=== PATIENT | female | born 1955 | race Caucasian/White ===

== ENCOUNTER 2016-11-13 05:42 | Day surgery (SDC) | payer OTHER ==
[2016-11-13] MEDS ORDERED: LIDOCAINE 1% 5 ML SDV ONE (05:51)
[2016-11-13] MEDS ORDERED: LIDOCAINE 1% 5 ML SDV ID PRN (06:48)
[2016-11-13] MEDS ORDERED: LR 1,000 ML IV ONE (06:48)
[2016-11-13] MEDS ORDERED: LIDO/EPI 1% **Not for Epidural 20 ML MDV ONE (06:49)
[2016-11-13] MEDS ORDERED: BUPIVACAINE/EPI 0.25% 30 ML SDV ONE (06:49)
[2016-11-13] MEDS ORDERED: fentaNYL 250 MCG/5 ML INJ ONE (07:03)
[2016-11-13] MEDS ORDERED: PROPOFOL 200 MG/20 ML VIAL ONE (07:03)
[2016-11-13] MEDS ORDERED: LIDOCAINE 2% 5 ML SDV ONE (07:05)
[2016-11-13] MEDS ORDERED: ROCURONIUM 50 MG/5 ML VIAL ONE (07:08)
[2016-11-13] MEDS ORDERED: MIDAZOLAM 2 MG/2 ML VIAL ONE (07:14)
[2016-11-13] MEDS ORDERED: DEXAMETHASONE 4 MG/ML VIAL ONE ×2 (07:40)
[2016-11-13] MEDS ORDERED: ONDANSETRON 4 MG/2 ML VIAL ONE (07:40)
[2016-11-13] MEDS ORDERED: fentaNYL 100 MCG/2 ML INJ ONE ×3 (08:55→10:14)
--- NOTE | 2016-12-31 06:10 | GOP ---
[f rep st] OPERATIVE REPORT DATE OF OPERATION: SURGEON: Dick Jane MD ANESTHESIA: General. PREOPERATIVE DIAGNOSIS: Obstructive sleep apnea, nasal obstruction, lingual tonsillar hypertrophy. POSTOPERATIVE DIAGNOSIS: Obstructive sleep apnea, nasal obstruction, lingual tonsillar hypertrophy. PROCEDURE PERFORMED: Lingual tonsil Coblation, septoplasty, bilateral inferior turbinate reduction. FINDINGS: Obstructive nasal septal deviation. Bilateral inferior turbinate hypertrophy. Lingual t onsil hypertrophy. SPECIMENS: None. ESTIMATED BLOOD LOSS: 50 mL. INDICATIONS: Patient was seen in outpatient clinic and found to have a long history of obstructive sleep apnea. This had been poorly treated and was exacerbated by nasal obstruction secondary to sep darrick deviation and inferior turbinate hypertrophy, as well as lingual tonsillar hypertrophy. Given h er history and findings, she was determined to be an appropriate candidate for the above-stated proc edures. The risks, benefits, and alternatives to the procedures were explained at length to the pat ient who stated she understood and agreed. DESCRIPTION OF PROCEDURE: Patient was brought to the operating room by Anesthesiology and placed on the operating table. Once the appropriate level of anesthesia was achieved, the patient was preppe d and draped for the lingual tonsil reduction. The operating table was turned 90 degrees and a shou lder roll was placed. A McIvor mouth gag was placed at a posterior oblique angle with a silk suture through the tongue midline. The tongue was retracted, as the mouth gag was deployed. It was then suspended on a Michael stand. With a 70-degree rigid video endoscope, there was good visualization of the lingual tonsil, epiglottis, and vallecula. Under this video endoscopic visualization, a Coblati on wand was then used to ablate the lingual tonsil down to the vallecula. There was appropriate red uction of soft tissue down into the vallecula. Ablation was continued laterally where there was hyp ertrophic lymphoid tissue. Coblation continued superiorly to just posterior to the circumvallate ta asaf buds. There was some mild bleeding and hemostasis was able to be achieved with mild Bovie elect rocautery and Coblation cautery. Once adequate hemostasis was achieved, the mouth gag was removed. The patient was then re-prepped for the nasal portion of the surgery. The bilateral inferior turbin ates, septum, columella were injected with 1% lidocaine with 1:100,[address] Afrin-soaked pl edgets were placed in bilateral nasal cavities. Once prep and set-up were finished, the pledgets we re removed. Needle tip Bovie electrocautery was used to create a left hemitransfixion incision. Th e subperichondrial and subperiosteal flap was elevated with a combination of [place] elevator and suc tion [place] under video endoscopic visualization with the 0-degree rigid endoscope. The remainder of the procedure was visualized with this endoscope. Once elevation on this side was complete, a Cott le elevator was used to create an incision at the bony cartilaginous junction. At this point, the c ontralateral submucoperiosteal flap was elevated. The deviated portion of the cartilaginous septum was incised with a D knife. Care was taken to leave a centimeter of caudal and dorsal cartilage for support. The incised quadrangular cartilage was then elevated off the contralateral mucosal flap u sing the [place] elevator. This was removed en st[place]. A straight Michael scissor was then used to cut the superior bony septum. The deviated portion of bony septum was then removed with a Preethi. D issection continued down to the nasal floor with both cartilaginous and bony septum being removed. There was mild bleeding with this and hemostasis was achieved with Afrin-soaked pledget packing. On ce the pledgets were removed, there was good hemostasis. Two 4-0 chromic sutures were used to close the hemitransfixion incision. Following this, a 2 mm turbinate microdebrider was used to complete a submucosal resection of the right inferior turbinate using an anterior puncture. This was also co mpleted on the left. There was good soft tissue reduction with both of these submucosal resections. The right turbinate and left turbinate were then infractured with a [place] elevator before being fr actured with the same elevator. There was good lateralization of the turbinates with this. At this point, there was good visualization from the nasal vestibules bilaterally through to the nasopharyn x. Nasal cavity was inspected for hemostasis and no bleeding was found. Bacitracin-coated Kw[place] sp lints were then placed in bilateral nasal cavities and secured in place with a single 2-0 Prolene rodriges ture at the nasal septum. The patient tolerated these procedures well and was extubated in the oper ating room prior to being transferred in good condition to the postanesthesia care unit. COMPLICATIONS: None. /[id number]/MODL
== END 2016-11-13 12:16 | disposition home or self-care (01) ==
LOC: F3N 05:42 → FSGY 05:42 → UNDOADMOB 05:42 → EDSTATUS 07:15 → FSGY 12:16
PROVIDERS: ATTEND Otolaryngology
PROC: 09TL4ZZ Resection of Nasal Turbinate, Percutaneous Endoscopic Approach (ICD-10-PCS; principal; 2016-11-13 07:15)
PROC: 0CBPXZZ Excision of Tonsils, External Approach (ICD-10-PCS; principal; 2016-11-13 07:15)
PROC: 09QM4ZZ Repair Nasal Septum, Percutaneous Endoscopic Approach (ICD-10-PCS; principal; 2016-11-13 07:15)
DX: G47.33 Obstructive sleep apnea (adult) (pediatric) (principal); J34.89 Other specified disorders of nose and nasal sinuses; J34.2 Deviated nasal septum
CPT/HCPCS: J1100; J2250; J2405; J2704; J3010

== ENCOUNTER → 2017-01-05 | Outpatient (CLI) | payer OTHER | LOC: BMCIMAGING 13:49 | DX: Z12.31 Encounter for screening mammogram for malignant neoplasm of breast (principal); Z80.3 Family history of malignant neoplasm of breast | CPT/HCPCS: G0202 ==

== ENCOUNTER → 2017-01-11 | Outpatient (CLI) | payer OTHER | LOC: BMCIMAGING 12:43 | DX: R92.8 Other abnormal and inconclusive findings on diagnostic imaging of breast (principal) | CPT/HCPCS: G0206 ==

== ENCOUNTER → 2017-03-01 | Outpatient (CLI) | payer OTHER | LOC: BMCIMAGING 10:39 | PROVIDERS: ATTEND Internal Medicine | DX: S22.31XA Fracture of one rib, right side, initial encounter for closed fracture (principal) | CPT/HCPCS: 71101-PO ==

== ENCOUNTER → 2017-08-02 | Outpatient (CLI) | payer OTHER | LOC: FIMAGING 15:00 | PROVIDERS: ATTEND Internal Medicine | DX: R92.8 Other abnormal and inconclusive findings on diagnostic imaging of breast (principal) | CPT/HCPCS: G0206 ==

== ENCOUNTER → 2018-02-18 | Outpatient (CLI) | payer OTHER | LOC: FIMAGING 11:44 | PROVIDERS: ATTEND Internal Medicine | DX: N63.0 Unspecified lump in unspecified breast (principal) ==

== ENCOUNTER → 2018-03-10 | Outpatient (CLI) | payer OTHER ==
[~2018-03-10] MED LIST: IOPAMIDOL (ISOVUE-300) 100 ML BTL ONE
== END ==
LOC: FIMAGING 10:47
PROVIDERS: ATTEND Internal Medicine
DX: K57.30 Diverticulosis of large intestine without perforation or abscess without bleeding (principal); N20.0 Calculus of kidney; N28.1 Cyst of kidney, acquired
CPT/HCPCS: Q9967

== ENCOUNTER → 2019-03-06 | Outpatient (CLI) | payer BC | LOC: FIMAGING 15:31 ==